=== PATIENT | female | born 1950 | race Caucasian/White ===

== ENCOUNTER 2017-05-05 07:39 | Day surgery (SDC) | payer OTHER ==
[~2017-05-05] VITALS: Ht 152.4 cm; Wt 69.7 kg
[2017-05-05 08:26] VITALS: Ht 152.4 cm; Wt 69.7 kg
[2017-05-05] MEDS ORDERED: HTN (08:37)
[2017-05-05] MEDS ORDERED: THYROXINE (08:37)
[2017-05-05] MEDS ORDERED: MELA1TAB9 PO (08:37)
[2017-05-05] MEDS ORDERED: [UNRECOGNIZED DRUG - REMARK] (08:37)
[2017-05-05] MEDS ORDERED: ASPI-664 PO (08:37)
[2017-05-05] MEDS ORDERED: METF500T9 PO (08:37)
[2017-05-05] MEDS ORDERED: PROPOFOL 40 ML ONE (09:05)
[2017-05-05] MEDS ORDERED: LIDOCAINE 2% (SDV) 5 ML INJ ONE (09:05)
[2017-05-05 09:26] VITALS: BP 105/59; PULSE 64; RESP 23
[2017-05-05 10:04] VITALS: BP 109/60; PULSE 70; RESP 12
--- NOTE | 2017-05-09 08:27 | GILP ---
DATE OF PROCEDURE: 05/05/2017 NAME OF PROCEDURE: Colonoscopy. SURGEON: Jordan Fong MD PREOPERATIVE DIAGNOSIS: Screening colonoscopy. POSTOPERATIVE DIAGNOSES: 1. Colonoscopy all the way to the cecum. 2. Diverticulosis of the colon. 3. Internal hemorrhoids. 4. No colon neoplasm was identified. INDICATION FOR THE PROCEDURE: Ms. Lor Mccoy is a 66-year-old female patient who was scheduled for screening colonoscopy. The procedure and possible complications are well explained to the patient, she understood and conse nted to the procedure. DESCRIPTION OF PROCEDURE: Under the influence of anesthesia, the colonoscope was carefully introduc ed in the rectum and under direct vision, it was advanced all the way to the cecum. FINDINGS: The patient was noted to have diverticulosis of the colon. She also had internal hemorrh oids. No colon neoplasm was identified. The patient tolerated the procedure very well and there was no complication from the procedure. At the end of the procedure, she was awake with stable vital signs and she was discharged home to the [facility] of her family. IMPRESSION: 1. Colonoscopy all the way to the cecum. 2. Diverticulosis of the colon. 3. Internal hemorrhoids. 4. No colon neoplasm was identified. PLAN: 1. Screening colonoscopy in 10 years. Dictated By: JORDAN MICHAUD/ENEDINA Conf#: [id number] DID#: [id number] CC: JORDAN FONG MD;*EndCC*
== END 2017-05-05 14:23 | disposition home or self-care (01) ==
LOC: GIL 07:39
PROVIDERS: ATTEND Internal Medicine Gastroenterology
DX: Z12.11 Encounter for screening for malignant neoplasm of colon (principal); K57.90 Diverticulosis of intestine, part unspecified, without perforation or abscess without bleeding; K64.8 Other hemorrhoids; E11.9 Type 2 diabetes mellitus without complications; I10 Essential (primary) hypertension; E03.9 Hypothyroidism, unspecified; E78.5 Hyperlipidemia, unspecified; E66.9 Obesity, unspecified; Z68.30 Body mass index [BMI] 30.0-30.9, adult
CPT/HCPCS: 82962